=== PATIENT | male | born 1955 | race Caucasian/White ===

== ENCOUNTER 2019-11-11 08:23 | Emergency (ER) | payer OTHER, SELFPAY ==
[2019-11-11 08:30] VITALS: BP 144/67; PULSE 53; RESP 18; O2SAT 96
--- NOTE | 2019-11-11 08:42 | ED.DIZZY ---
HPI - Dizziness General Chief Complaint: Dizziness Stated Complaint: VERTIGO/HISTORY OF HEART ATTACK/STROKE Time Seen by Provider: 11/11/19 08:30 Source: patient Mode of arrival: Ambulatory Limitations: no limitations History of Present Illness HPI Narrative: The patient is a 64-year-old male with history of TIA and MRI presenting with dizziness. He says he woke up this morning feeling dizzy it was a little noticed initially however throughout the morning and has progressively gotten worse. It is significantly worse whenever he turns stands up or moves his head. Sitting in the room and now not moving he is asymptomatic and overall feels like he is getting better. He denies any chest pain heart palpitations or shortness of breath. He has no visual loss numbness tingling or weakness in any of his extremities. He denies any syncope MD complaint: dizziness and lightheadedness Timing: sudden onset Description: room spinning History of similar episodes: No History of trauma: No Related Data Home Medications Medication Instructions Recorded Confirmed lisinopril 5 mg PO BID 11/11/19 11/11/19 Previous Rx's Medication Instructions Recorded meclizine 25 mg PO TID PRN #10 tab 11/11/19 ondansetron 4 mg PO Q8H PRN #10 tab 11/11/19 Allergies Allergy/AdvReac Type Severity Reaction Status Date / Time No Known Drug Allergies Allergy Verified 11/11/19 08:48 Review of Systems Review of Systems ROS Unobtainable: All systems reviewed & are unremarkable except as noted in HPI and below Constitutional Constitutional: Denies chills, Denies fever(s), Denies lethargy and Denies weakness Eyes Eyes: Denies change in vision, Denies eye discharge, Denies irritation and Denies loss of vision ENT Ears, Nose, Mouth, and Throat: Denies change in voice, Reports vertigo, Reports dizziness, Denies neck pain and Denies sore throat Cardiovascular Cardiovascular: Denies chest pain, Denies syncope, Denies irregular heart rhythm, Denies lightheadedness, Denies palpitations, Denies dyspnea, Denies dyspnea on exertion and Denies orthopnea Respiratory Respiratory: Denies cough, Denies dyspnea, Denies dyspnea on exertion and Denies wheezing Gastrointestinal Gastrointestinal: Denies abdominal pain, Denies change in bowel habits, Denies diarrhea, Denies nausea and Denies vomiting Genitourinary Genitourinary: Denies hematuria, Denies flank pain, Denies urinary incontinence and Denies urinary urgency Musculoskeletal Musculoskeletal: Denies neck pain and Denies numbness Integumentary/Breasts Skin/Breast: Denies pruritus, Denies erythema, Denies rash and Denies wounds Neurologic Neurologic: Reports vertigo, Reports dizziness, Denies syncope, Denies loss of vision, Denies memory loss, Denies numbness, Denies other visual disturbances, Reports convulsions and Denies weakness Psychiatric Psychiatric: Denies memory loss Endocrine Endocrine: Denies palpitations Allergic/Immunologic Allergic/Immunologic: Denies wheezing Patient History Medical History Coronary artery disease (Acute) Social History Smoking Status: Former smoker alcohol intake: never substance use type: does not use Exam Initial Vital Signs Initial Vital Signs: Vital Signs Pulse Rate 53 L 11/11/19 08:30 Respiratory Rate 18 11/11/19 08:30 Blood Pressure 144/67 H 11/11/19 08:30 Pulse Oximetry 96 11/11/19 08:30 GENERAL: Well-appearing, well-nourished and in no acute distress. HEENT: Head atraumatic,EOMI, pupils reactive, face symmetric, moist mucous membranes CARDIOVASCULAR: Regular rate and rhythm without murmurs, rubs or gallops. RESPIRATORY: Breath sounds equal bilaterally, no wheezes rales or rhonchi. ABDOMEN: Soft, nontender. Normoactive bowel sounds all 4 quadrants. No guarding or rebound EXTREMITIES: Normal range of motion, no clubbing or edema. Neurovascularly intact NEUROLOGICAL: Alert and oriented x4.Normal gait and speech. Cranial nerves II through XII grossly intact. Good [id number], good [id number], strength equal bilaterally, no dysarthria or aphasia, sensation in tact to soft touch bilaterally, no visual changes, no facial droop SKIN: Warm, dry, no laceration, no petechiae, no rashes or lesions. Scores NIH Stroke Scale Level of Conciousness: Alert, keenly responsive Ask month/age: Answers both questions correctly. Open/close eyes, close hand: Performs both tasks correctly Best gaze horizontal: Normal Visual diaz: No visual loss Facial palsy: Normal symetrical movement Left arm drift: No drift for full 10 sec Right arm drift: No drift for full 10 sec Left leg drift: No drift for full 10 sec Right leg drift: No drift for full 10 sec Limb ataxia: Absent Sensory on face/arms/legs: Normal, no sensory loss Best language: No aphasia, normal Dysarthria: Normal Extinction or inattention: No abnormality Total NIH Stroke scale score: 0 Course Orders Ordered: ED Orders 11/11/19 08:40 Complete Blood Count AUTO DIFF Stat Comprehensive Metabolic Panel Stat Troponin I Stat 11/11/19 08:41 CT head/brain wo con Stat Discontinued Medications Sodium Chloride (Normal Saline 0.9%) 1,000 mls @ 1,000 mls/hr IV CONT HECTOR Last Infusion: 11/11/19 10:26 Dose: 0 mls/hr Documented by: Admin: 11/11/19 09:03 Dose: 1,000 mls/hr Documented by: CYNTHIA Meclizine HCl (Antivert) 25 mg PO NOW ONE Stop: 11/11/19 08:41 Last Admin: 11/11/19 09:04 Dose: 25 mg Documented by: CYNTHIA Ondansetron HCl (Zofran) 4 mg IV NOW ONE Stop: 11/11/19 08:41 Last Admin: 11/11/19 09:04 Dose: 4 mg Documented by: CYNTHIA Vital Signs Vital signs: Vital Signs - 8 hr 11/11/19 08:30 11/11/19 08:45 11/11/19 09:29 Temperature 97.5 F L Pulse Rate 53 L 55 L 53 L Respiratory Rate 18 24 17 Blood Pressure 190/87 H Blood Pressure [Right Arm] 144/67 H Pulse Oximetry 96 98 96 11/11/19 10:00 Temperature Pulse Rate 56 L Respiratory Rate 20 Blood Pressure Blood Pressure [Right Arm] 156/82 H Pulse Oximetry 98 MDM - Dizziness Lab Data Attestation: I reviewed the patient's lab results. Result diagrams: 11/11/19 08:40 11/11/19 08:40 Labs: Lab Results 11/11/19 11/11/19 Range/Units 08:40 08:40 WBC 7.8 (4.5-11.0) X10^3/uL RBC 5.24 (4.5-5.9) X10^6/uL Hgb 15.5 (13.5-17.5) g/dL Hct 46.0 (41-53) % MCV 87.7 (80-100) fL MCH 29.6 (26-34) PG MCHC 33.7 (30-36) % RDW 13.4 (11.6-14.8) % Plt Count 190 (150-400) X10^3/uL Neut % (Auto) 80.4 H (50-75) % Lymph % (Auto) 12.1 L (25-40) % Douglas % (Auto) 5.6 (3-14) % Eos % (Auto) 1.2 L (2-4) % Baso % (Auto) 0.7 (0-2) % Neut # (Auto) 6300 (8365-1578) /uL Lymph # (Auto) 900 L (7037-8048) /uL Douglas # (Auto) 400 (0-900) /uL Eos # (Auto) 100 (0-450) /uL Baso # (Auto) 100 (0-100) /uL Sodium 138 (137-145) mmol/L Potassium 4.2 (3.4-5.1) mmol/L Chloride 102 (98-107) mmol/L Carbon Dioxide 27 (22-32) mmol/L BUN 22 H (9-20) mg/dL Creatinine 1.10 (0.66-1.25) mg/dL Estimated GFR > 60.0 (>60) mL/min BUN/Creatinine Ratio 20.0 (6-22) Glucose 134 H (80-110) mg/dL Calcium 10.1 (8.4-10.2) mg/dL Total Bilirubin 0.6 (0.2-1.3) mg/dL AST 27 (17-59) IU/L ALT 31 (<50) IU/L Alkaline Phosphatase 85 (38-126) U/L Troponin I < 0.012 (0.01-0.034) ng/mL Total Protein 7.4 (6.3-8.2) g/dL Albumin 4.5 (3.5-5.0) g/dL Globulin 2.9 (1.7-4.1) g/dL Albumin/Globulin Ratio 1.6 (1.0-2.8) Imaging Data CT scan - head: Radiologist's Impression: PROCEDURE: CT HEAD/BRAIN WO CON INDICATIONS: dizzy with hx of tia TECHNIQUE: Noncontrast 4.5 mm thick angled axial sections acquired from the foramen magnum to the vertex, with coronal and sagittal reformats. For radiation dose reduction, the following was used: automated exposure control, adjustment of mA and/or kV according to patient size. COMPARISON: None. FINDINGS: Image quality: Excellent. CSF spaces: Basal cisterns are patent. No extra-axial fluid collections. Ventricles are normal in size and shape. Brain: No midline shift. No intracranial masses or hemorrhage. Uf-white matter interface is normal. Skull and face: Calvarium and visualized facial bones are intact, without suspicious lesions. Sinuses: Visualized sinuses and mastoids are clear. IMPRESSION: Normal for age, source of current dizziness and fatigue symptoms is not seen. Dictated by: Alphonso Campos M.D. on 11/11/2019 at 9:05 ECG Data Attestation: I personally reviewed and interpreted this ECG as follows: Prior ECG tracings: not available for review Interpretation: Normal sinus rhythm rate 53 p.r. interval 140 QRS [address] elevation depression or T-wave inversion MDM Narrative Medical decision making narrative: Patient is overall feeling much better. He is ambulatory in the ED without any difficulty. He has no other deficits signs or symptoms of stroke. This is likely vertigo. He is given prescriptions for Zofran and meclizine. Discharge Plan Departure Patient Disposition: Home Clinical Impression: Vertigo Discharge Date/Time: 11/11/19 10:46 Instructions: DI for Dizziness-Nonvertigo Activity Restrictions/Additional Instructions: *You have been diagnosed with vertigo *What to do: Increase activity as tolerated this should resolve. Head CT and blood work today are overall reassuring. *Continue to take medications as directed--> sent to [facility] in [place] Zofran 4 mg every 8 hours as needed for nausea or vomiting Meclizine 25 mg every 8 hours if needed for dizziness *Follow up with your primary care provider in 2-3 days *Return to ER if you should have this weakness difficulty speaking facial droop inability to move arm or leg or any new, worsening or concerning symptoms Prescriptions: New ondansetron 4 mg tablet,disintegrating 4 mg PO Q8H PRN (Reason: nausea and vomiting) Qty: 10 RF: 0 meclizine 25 mg tablet 25 mg PO TID PRN (Reason: dizziness) Qty: 10 RF: 0 No Action lisinopril 5 mg tablet 5 mg PO BID RF: 0 Referrals: Rojelio Peñaloza MD [Primary Care Provider] -
[2019-11-11 08:45] VITALS: BP 190/87; PULSE 55; RESP 24; TEMP 36.4; O2SAT 98; BMI 30.9
[2019-11-11 08:50] LABS: Add Manual Diff / Slide Review NO; Basophils Absolute Auto 100 /uL (0-100); Basophils Percent Auto 0.7 % (0-2); Eosinophils Absolute Auto 100 /uL (0-450); Eosinophils Percent Auto 1.2 % (2-4); Hemoglobin 15.5 g/dL (13.5-17.5); Lymphocytes Absolute Auto 900 /uL (1100-4500); Lymphocytes Percent Auto 12.1 % (25-40); Mean Corpuscular HGB Conc 33.7 % (30-36); Mean Corpuscular Hemoglobin 29.6 PG (26-34); Mean Corpuscular Volume 87.7 fL (80-100); Monocytes Absolute Auto 400 /uL (0-900); Monocytes Percent Auto 5.6 % (3-14); Neutrophils Absolute Auto 6300 /uL (1500-7000); Neutrophils Percent Auto 80.4 % (50-75); Platelet Count 190 X10^3/uL (150-400); Red Blood Cell Count 5.24 X10^6/uL (4.5-5.9); Red Cell Distribution Width 13.4 % (11.6-14.8); White Blood Cell Count 7.8 X10^3/uL (4.5-11.0)
[2019-11-11 08:57] LABS: Alanine Aminotransferase 31 IU/L (<50); Albumin 4.5 g/dL (3.5-5.0); Albumin Globulin Ratio 1.6 (1.0-2.8); Alkaline Phosphatase 85 U/L (38-126); Aspartate Aminotransferase 27 IU/L (17-59); Bilirubin Total 0.6 mg/dL (0.2-1.3); Blood Urea Nitrogen 22 mg/dL (9-20); Calcium 10.1 mg/dL (8.4-10.2); Carbon Dioxide 27 mmol/L (22-32); Chloride 102 mmol/L (98-107); Estimated Glomerular Filt Rate > 60.0 mL/min (>60); Globulin 2.9 g/dL (1.7-4.1); Glucose 134 mg/dL (80-110); HEMOLYSIS < 15 (0-50); Potassium 4.2 mmol/L (3.4-5.1); Sodium 138 mmol/L (137-145); Total Protein 7.4 g/dL (6.3-8.2)
[2019-11-11] MEDS: SODIUM CHLORIDE 0.9% 1,000 ML 1000 ML IV (09:03)
[2019-11-11] MEDS: MECLIZINE HCL 12.5 MG TABLET 25 MG PO (09:04)
[2019-11-11] MEDS: ONDANSETRON 4 MG/2 ML INJ IV (09:04)
[2019-11-11 09:09] LABS: Troponin I < 0.012 ng/mL (0.01-0.034)
[2019-11-11 09:29] VITALS: PULSE 53; RESP 17; O2SAT 96
[2019-11-11 10:00] VITALS: BP 156/82; PULSE 56; RESP 20; O2SAT 98
--- NOTE | 2019-11-11 10:29 | PC.NURSE ---
Patient was able to walk around the department with no complaints of room spinning. Says he is slightly dizzy, but feeling much better and feels stable on his feet.
== END 2019-11-11 10:46 | disposition home or self-care (01) ==
PROVIDERS: Emergency Provider Emergency Medicine; PCP Family Medicine
DX: R42 Dizziness and giddiness (principal); I10 Essential (primary) hypertension; I25.10 Atherosclerotic heart disease of native coronary artery without angina pectoris; Z86.73 Personal history of transient ischemic attack (TIA), and cerebral infarction without residual deficits
CPT/HCPCS: 36415; 70450; 80053; 84484; 85025; 93005; 96361; 96374; 99284; 99285; J2405